=== PATIENT | female | born 1995 | race Caucasian/White ===

== ENCOUNTER 2016-12-25 21:19 | Emergency (ER) | payer OTHER ==
[~2016-12-25] VITALS: Ht 170.2 cm; Wt 136.1 kg
[2016-12-25 21:36] VITALS: BP 110/66
--- NOTE | 2016-12-25 21:57 | NUR ---
PATIENT LEFT WITHOUT BEING SEEN BY DR. KHALIL. NO FURTHER CARE PROVIDED FOR PATIENT.
== END 2016-12-25 21:57 | disposition left against medical advice (07) ==
LOC: MED 21:19
DX: H92.02 Otalgia, left ear (principal); Z53.21 Procedure and treatment not carried out due to patient leaving prior to being seen by health care provider